=== PATIENT | female | born 1955 | race Caucasian/White ===

== ENCOUNTER 2024-06-04 13:15 | Emergency (ER) | payer BC, OTHER ==
[~2024-06-04 13:15] MED LIST: Iopamidol 300 61% 100 ML VIAL FS ONE
[2024-06-04 14:26] LABS: #Basophils 0.08 10x3/uL (0.0-0.2); #Eosinphils 0.06 10x3/uL (0.0-0.5); #Monocytes 0.58 10x3/uL (0.0-1.1); #Neutrophils 3.97 10x3/uL (1.5-8.4); %Basophils 1.3 % (0.0-2.0); %Lymphocytes 21.8 % (18.0-47.0); %Monocytes 9.6 % (0.0-10.0); Hemoglobin 12.4 g/dL (12.0-15.5); Mean Corpuscular HGB CONC 33.5 g/dL (32.0-36.0); Mean Corpuscular Hemoglobin 29.3 pg (27.0-33.0); Mean Corpuscular Volume 87.5 fL (81.6-98.3); Mean Platelet Volume 10.6 fL (7.4-10.4); Platelet Count 246 10x3/uL (150-450); RBC Distribution Width 13.6 % (11.5-14.5); Red Blood Cell (RBC) Count 4.23 10x6/uL (3.90-5.03)
[2024-06-04 14:32] LABS: D-Dimer Test 1.95 mcg/mL (0.19-0.50); INR-International Normal Ratio 0.9; PTT 24.4 sec (22.0-33.0); Prothrombin Time 10.3 sec (9.5-12.1)
[2024-06-04 14:36] LABS: ALT (SGPT) 18 U/L (8-55); AST (SGOT) 21 U/L (5-34); Albumin 3.9 g/dL (3.4-4.8); Alkaline Phosphatase 99 U/L (40-110); Anion Gap 15 mmol/L (10-20); BUN (Urea Nitrogen) 14 mg/dL (9.8-20.1); Bilirubin, Total 0.8 mg/dL (0.2-1.2); Calc. Creatinine Clearance 0 mL/min (70-130); Calcium 9.5 mg/dL (7.8-10.44); Carbon Dioxide 22 mmol/L (23-31); Chloride 105 mmol/L (98-107); Estimated GFR 58; Globulin 2.8 g/dL (2.4-3.5); Glucose 101 mg/dL (80-115); Lipase 17 U/L (8-78); Potassium 4.4 mmol/L (3.5-5.1); Protein, Total 6.7 g/dL (5.8-8.1); Sodium 138 mmol/L (136-145)
[2024-06-04 14:42] LABS: Troponin I Less than 0.010 ng/mL (< 0.028)
== END 2024-06-04 17:00 | disposition home or self-care (01) ==
LOC: CSHERS 13:15
DX: R07.89 Other chest pain (principal)
CPT/HCPCS: 70450; 71045; 71260; 72125; 74177; 80053; 83690; 83880; 84484; 85025; 85379; 85610; 85730; 93005; Q9967